=== PATIENT | male | born 1945 | race Caucasian/White ===

== ENCOUNTER 2017-06-07 13:06 | Inpatient (IN) | payer MEDICARE, OTHER ==
--- NOTE | 2017-06-07 13:32 | ED Physician Chart ---
ED Chief Complaint/HPI - Patient Information Date Seen:: 06/07/17 Time Seen:: 13:10 Chief Complaint:: Agitation History of Present Illness:: onset x 3 days of agitation and hostile behavior; no report of trauma, H/as, neck pain, C/P, SOB, Abd. Pain, A/N/V/D/c, fever, chills, or uribnary s/s Allergies:: Allergies Allergy/AdvReac Type Severity Reaction Status Date / Time MDX PCN (penicillin) Allergy Unknown Verified 07/13/12 20:12 [PCN (penicillin)] Historian:: Patient, EMS Review:: Nurse's Note Reviewed, Old Chart Reviewed, EMS run form Reviewed ED Review of Systems - Review of Systems General/Constitutional: No fever, No chills, No weight loss, No weakness, No diaphoresis, No edema, No loss of appetite Skin: No skin lesions, No rash, No bruising Head: No headache, No light-headedness Eyes: No loss of vision, No pain, No diplopia ENT: No earache, No nasal drainage, No sore throat, No tinnitus Neck: No neck pain, No swelling, No thyromegaly, No stiffness, No mass noted Cardio Vascular: No chest pain, No palpitations, No PND, No orthopnea, No edema Pulmonary: No SOB, No cough, No sputum, No wheezing GI: No nausea, No vomiting, No diarrhea, No pain, No melena, No hematochezia, No constipation, No hematemesis G/U: No dysuria, No frequency, No hematuria, No nacturia Musculoskeletal: No bone or joint pain, No back pain, No muscle pain Endocrine: No polyuria, No polydipsia Psychiatric: Prior psych history, No depression, Anxiety, No suicidal ideation, No homicidal ideation, No auditory hallucination, No visual hallucination Hematopoietic: No bruising, No lymphadenopathy Allergic/Immuno: No urticaria, No angioedema Neurological: No syncope, No focal symptoms, No weakness, No paresthesia, No headache, No seizure, No dizziness, Confusion, No vertigo ED Past Medical History - Past Medical History Obtainable: Yes Past Medical History: HTN, Dyslipidemia, Dementia Family History: HTN Social History: Non Smoker, No Alcohol, No Drug Use, Care Facility Surgical History: None Psychiatricy History: Bipolar, Dementia Medication: Reviewed Family Medical History - Family Member Mother History Unknown: Yes ED Physical Exam - Physical Examination General/Constitutional: Awake, Well-developed, well-nourished, Alert, No distress, GCS 15, Non-toxic appearing, Ambulatory Head: Atraumatic Eyes: Lids, conjuctiva normal, PERRL, EOMI Skin: Nl inspection, No rash, No skin lesions, No ecchymosis, Well hydrated, No lymphadenopathy ENMT: External ears, nose nl, TM canals nl, Nasal exam nl, Lips, teeth, gums nl , Oropharynx nl, Tonsils nl Neck: Nontender, Full ROM w/o pain, No JVD, No nuchal rigidity, No bruit, No mass, No stridor Respiratory: Nl effort/Exclusion, Clear to Auscultation, No Wheeze/Rhonchi/Rales Cardio Vascular: RRR, No murmur, gallop, rubs, NL S1 S2, Carotid/Femoral/Distal pulses equal bilaterally GI: No tenderness/rebounding/guarding, No organomegaly, No hernia, Normal BS's, Nondistended, No mass/bruits, No McBurney tenderness : No CVA tenderness Extremities: No tenderness or effusion, Full ROM, normal strength in all extremities, No edema, Normal digits & nails Neuro/Psych: Alert/oriented, DTR's symmetric, Normal sensory exam, Normal motor strength, Judgement/insight normal, Mood normal, Normal gait, No focal deficits Other Neuro/Psych comments:: + psychomotor agitation; no SIs; Mood/Affect: Stable Misc: Normal back, No paraspinal tenderness ED Labs/Radiology/EKG Results - Lab Results Comments:: unremarkable - EKG Interpretations EKG Time:: 13:40 Rate & Rhythm: 80; NSR Comments:: non-specific st-t changes ED Septic Shock - . Is Septic Shock (SBP<90, OR Lactate>4 mmol\L) present?: No ED Reassessment (Disposition) - Reassessment Reassessment Condition:: Improved - Diagnosis Diagnosis:: Dx: Bipolar Disorder; Agitation; Psychosis; Medical Clearance - Aftercare/Follow up Instructions Aftercare/Follow-Up Instructions:: Counseled pt regarding lab results/diagnosis & need follow up, Counseled pt & family regarding lab results/diagnosis & need follow up - Patient Disposition Discharge/Transfer:: Acute Care w/in this hosp Admitted to:: [facility] Condition at Disposition:: Stable, Improved ED Discharge Plan - Patient Disposition
[2017-06-07 14:20] LABS: % BASOPHILS 0.6 % (0.0-2.0); % EOSINOPHILS 0.9 % (0.0-5.0); % LYMPHOCYTES 30.8 % (20.0-50.0); % MONOCYTES 7.7 % (2.0-10.0); EOSINOPHILE ABSOLUTE 0.1 Th/cmm (0.1-0.4); HEMATOCRIT 40.9 % (41.0-60); HEMOGLOBIN 13.7 gm/dL (12-16); MEAN CELL VOLUME 93.2 fl (80-99); MEAN CORPUSCULAR HEMOGLOBIN 31.2 pg (27.0-31.0); MEAN CORPUSCULAR HGB CONC 33.5 pg (28.0-36.0); MEAN PLATELET VOLUME 6.9 fl; MONOCYTE ABSOLUTE 0.5 Th/cmm (0.3-1.0); NEUTROPHILE ABSOLUTE 3.8 Th/cmm (1.8-8.0); PLATELET COUNT 286 Th/cmm (150-400); RED BLOOD COUNT 4.39 Mil/cmm (3.80-5.80); RED CELL DISTRIBUTION WIDTH 12.7 % (11.5-20.0); WHITE BLOOD COUNT 6.4 Th/cmm (4.8-10.8)
[2017-06-07 14:41] LABS: ALB/GLOB RATIO 1.4 (1.0-1.8); ALBUMIN 3.4 gm/dL (4.2-5.5); ALKALINE PHOSPHATASE 96 U/L (34-104); ANION GAP 9.5 (7.0-16.0); BILIRUBIN,TOTAL 0.3 mg/dL (0.3-1.0); BUN - UREA NITROGEN 17 mg/dL (7-25); CALCIUM SERUM 9.1 mg/dL (8.6-10.3); CARBON DIOXIDE 27.3 mEq/L (21.0-31.0); CHLORIDE 104 mEq/L (98-107); CHOLESTEROL 170 mg/dL (<200); CREATININE - SERUM 0.8 mg/dL (0.7-1.3); GLUCOSE 96 mg/dL (70-105); HDL -HIGH DENSITY LIPOPROTEIN 45 mg/dL (23-92); POTASSIUM SERUM 3.8 mEq/L (3.5-5.1); SGOT 10 U/L (13-39); SGPT/ALT 10 U/L (7-52); SODIUM SERUM 137 mEq/L (136-145); TOTAL PROTEIN,SERUM 5.9 gm/dL (6.0-8.3); TRIGLYCERIDES 127 mg/dL (<150)
[2017-06-07 15:00] LABS: ACETAMINOPHEN < 10.0 ug/mL (10.0-30.0); SALICYLATES (ASPIRIN) < 25.0 mg/L (30.0-100.0)
[2017-06-07] MEDS ORDERED: Magnesium Hydroxide (MOM) 30 mL UDC PO PRN (15:21)
[2017-06-07] MEDS ORDERED: Maalox 30 mL Cup PO PRN (15:21)
[2017-06-07 15:34] VITALS: BP 109/61
[2017-06-07] MEDS ORDERED: Non-Formulary Item 1 EA (Haloperidol Decanoate [Haldol Decanoate 50] 1 ML) IM SCH (19:00)
[2017-06-07 19:23] LABS: A1C % 6.5 % (4.0-6.0)
--- NOTE | 2017-06-08 04:17 | Psychosocial Evaluation ---
DATE OF SERVICE: 06/07/2017 IDENTIFYING DATA: The patient is a 72-year-old male, resident of [facility]. Information was obtained by directly interviewing the patient as well as reviewing the admission papers. JUSTIFICATION OF HOSPITALIZATION: The patient is admitted for his acute agitation and mood swings. CHIEF COMPLAINT: "Leave me alone." HISTORY OF PRESENT ILLNESS: This is the first psychiatric hospitalization to [facility] for this patient who is reported to have been diagnosed to have acute mood swings. Prior to the hospitalization, the patient is reported to have been on the Haldol Decanoate at the facility, but the patient has reported that he is not very clear when the last the patient happened to take this medication. The patient has been screaming and yelling at the time of the evaluation and the patient has been getting easily upset. Sleep and appetite prior to the hospitalization are reported to be poor. PAST PSYCHIATRIC HISTORY: Please refer to the above. MEDICAL HISTORY: Requested to be done by Dr. Rafi Barkley. PHYSICAL EXAMINATION: Requested to be done by Dr. Rafi Barkley. SUBSTANCE ABUSE HISTORY: None. PHYSICAL OR SEXUAL ABUSE HISTORY: None. LEGAL PROBLEMS: None at this time. STRENGTH AND ASSETS: The patient is motivated. MENTAL STATUS EXAMINATION: The patient is a 72-year-old, looking his stated age, thin built, superficially cooperative. Eye contact is poor. Mood is irritable. Affect is constricted. Coping skills at this time are noted to be very poor. Sleep and appetite also noted to be very poor. The patient has been having difficult time to cope with the stress. DIAGNOSTIC IMPRESSION: AXIS I: Bipolar disorder, mixed with psychotic symptoms. 1B. Dementia and behavioral change, secondary to it. AXIS II: None. AXIS III: As per Dr. Mckee. IMMEDIATE TREATMENT PLAN: The patient is going to be started on low dose of the Seroquel and he is going to be encouraged to participate in the groups and verbalize the concerns. Once stabilized, the patient is going to be discharged to [facility]. JOB# [id number]
[2017-06-08] MEDS: Multivitamin Tab PO SCH (09:35)
--- NOTE | 2017-06-08 17:18 | Progress Notes ---
DATE: 06/08/2017 SUBJECTIVE: Staff was spoken to. The patient is interviewed. Mood is noted to be irritable. Affect is constricted. The patient is screaming and yelling. Insight and judgment at this time are noted to be very much impaired. Impulse control is noted to be very poor. The patient's sleep is also noted to be very poor. The patient has been not able to communicate well. The patient has difficult time to cope with the stress. ASSESSMENT: The patient is still impulsive and psychotic. PLAN: To increase the dose on the Seroquel to 25 mg and follow the patient with the supportive therapy. The patient is not ready to be discharged to a lower level of care in view of the psychosis. JOB# [id number]
[2017-06-09] MEDS: Multivitamin Tab PO SCH (09:33)
--- NOTE | 2017-06-10 03:04 | Progress Notes ---
DATE: 06/09/2017 SUBJECTIVE: Staff was spoken to. The patient is interviewed. Mood is noted to be irritable. Affect is constricted. Insight and judgment at this time are noted to be impaired. Impulse control seems to be poor. The patient is screaming and yelling. No side effects to the medications are noted. The patient has been having difficult time. PLAN: The patient is currently on Seroquel 25 mg at bedtime and has been able to tolerate. No side effects to the medications are noted at this time. JOB# [id number]
[2017-06-10] MEDS: Multivitamin Tab PO SCH (09:28)
--- NOTE | 2017-06-10 16:30 | History & Physical ---
ADMIT DATE: 06/07/2017 CHIEF COMPLAINT: Agitation. HISTORY OF PRESENT ILLNESS: This is a 72-year-old male who was admitted from correction facility going to the Emergency Room due to agitation, hence once the patient was medically cleared, the patient was admitted to [facility] mental health unit. REVIEW OF SYSTEMS: GENERAL: This is a 72-year-old who appears as stated. Denies fever. Denies weight loss. Denies chills. EYES: Denies eye pain. Denies blurring of vision. NECK: Denies neck pain. Denies nuchal rigidity. CHEST: Denies palpitation. Denies chest pain. PULMONARY: Denies coughing. Denies shortness of breath. GASTROINTESTINAL: Denies abdominal pain. Denies constipation. Denies diarrhea. MUSCULOSKELETAL: Denies joint pain. Denies muscle pain. SOCIAL HISTORY: The patient lives in a correction facility prior to hospitalization. PSYCHIATRIC HISTORY: Includes bipolar disorder. PAST SURGICAL HISTORY: Unremarkable. FAMILY HISTORY: Unremarkable. PAST MEDICAL HISTORY: Includes COPD, hypertension, hyperlipidemia, osteoarthritis, and gastroesophageal reflux disease. PHYSICAL EXAMINATION: VITAL SIGNS: Temperature 98.2, heart rate of 61, blood pressure 111/70, respirations of 18, and 95% on room air. HEENT: Head is atraumatic and normocephalic. Eyes: Bilateral conjunctivae are clear. Bilateral pupils are equally round, reactive. NECK: Supple. No JVD. CARDIOVASCULAR: S1 and S2, without murmur. PULMONARY: Clear to auscultation. GASTROINTESTINAL: Soft and nontender without guarding. Positive bowel sounds. MUSCULOSKELETAL: No clubbing. No cyanosis noted. ASSESSMENT: 1. Bipolar disorder. 2. Chronic obstructive pulmonary disease. 3. Hyperlipidemia. 4. Osteoarthritis. 5. Hypertension. 6. Gastroesophageal reflux disease. PLAN: We will admit the patient to [facility] mental health unit. We will follow up with the psychiatrist to monitor the patient's condition and behavior. We will do medication reconciliation accordingly. Treatment plans were discussed with the patient's nurse. Treatment plans were discussed with Dr. Mckee. JOB# [id number]
--- NOTE | 2017-06-10 18:02 | Progress Notes ---
DATE: 06/10/2017 SUBJECTIVE: Staff was spoken to. The patient is interviewed. Mood is noted to be irritable. Affect is constricted. Insight and judgment at this time are noted still impaired. Impulse control is very poor. Coping skills are noted to be very poor. The patient has been isolative and withdrawn. The patient is currently on 25 mg of the Seroquel and has been able to tolerate the medications. No side effects to medications are noted at this time. The patient's sleep is noted to be poor. Appetite is noted to be improving. No side effects to the Seroquel are noted. The patient's Haldol Decanoate is going to be discontinued at this time. [facility]# [id number]
--- NOTE | 2017-06-11 08:02 | Consultation ---
DATE OF CONSULTATION: 06/09/2017 REFERRING PHYSICIAN: Kenzie Dickey M.D. TYPE OF CONSULTATION: Psychology. HISTORY OF PRESENT ILLNESS: The patient is a 72-year-old male who is a resident of [facility]. The patient is being admitted due to acute agitation and extreme mood fluctuation. The following is by review of the medical record as well as by the patient's self report. The patient is stating to leave him alone. The patient is reported by the staff at his facility to be screaming and yelling and easily agitated. The patient did not answer questions in the clinical interview with respect to safety i.e., suicidal ideation, plan or intention. The patient is getting easily agitated during the clinical interview. The patient is guarded and resistant to this commercial lines underwriter. This commercial lines underwriter will continue to follow up with an extended evaluation. PAST MEDICAL HISTORY: Please see history and physical by Dr. Barkley. PAST PSYCHIATRIC HISTORY: The patient has history of dementia according to the medical record. The patient is under the care of a psychiatrist at his senior care facility. This is the first hospitalization here on the Geropsychiatric unit at [facility]. The patient has a history of Bipolar Disorder according to the record. PSYCHOSOCIAL HISTORY: The patient did not answer questions about occupational or educational history or scientology affiliation. The patient did not answer questions about family history or about his support system or legal issues. The patient did not answer questions about abuse history. SUBSTANCE ABUSE HISTORY: The patient denied any history. MENTAL STATUS EXAMINATION: The patient appears to be of stated age. The patient's attitude is mostly uncooperative. Speech is pressured and loud. The patient is easily agitated and yelling at times. Eye contact is avoidant. Mood is irritable and angry. Affect is constricted. The patient did not answer questions about auditory or visual hallucinations or delusions. Thought process shows to be confused. The patient's behavior is redirectable. Impulse control was poor. Concentration is poor. The patient did not participate in the memory assessment. Sensorium is alert and oriented to place and self only. The patient did not participate in the interpretation of proverbs. Insight is poor. Judgment is impaired. DIAGNOSTIC IMPRESSION: AXIS I: 1. History of Bipolar disorder mixed with psychotic symptoms. 2. Dementia with behavioral disturbance. AXIS II: Deferred. AXIS III: Please see history by Dr. Mckee. PLAN: The patient has been seen by Dr. Dickey for psychiatric evaluation and for the management of the patient's psychotropic medications. According to the admitting physician, the patient is continued on Seroquel. We will provide coping strategies for phase of life issues. We will provide a de-escalation skill for the patient to verbalize concerns versus yelling and acting out. We will provide reality orientation and reality integration. We will provide motivational enhancement for the patient to be calm, compliant, and stay compliant with all aspects of his care and treatment plan during the course of his hospital stay. We will also provide coping skills for chronic severe mental illness. Thank you, Dr. Dickey for this consult and the opportunity to participate with you in this patient's care. JOB# [id number] SACHIN
--- NOTE | 2017-06-11 08:44 | General Progress Note ---
Subjective - Review of Systems Events since last encounter: patient irritable disorganized denies pain Objective - Results Result Diagrams: 06/07/17 14:07 06/07/17 14:07 Recent Labs: Laboratory Last Values WBC 6.4 Th/cmm (4.8-10.8) 06/07/17 14:07 RBC 4.39 Mil/cmm (3.80-5.80) 06/07/17 14:07 Hgb 13.7 gm/dL (12-16) 06/07/17 14:07 Hct 40.9 % (41.0-60) L 06/07/17 14:07 MCV 93.2 fl (80-99) 06/07/17 14:07 MCH 31.2 pg (27.0-31.0) H 06/07/17 14:07 MCHC Differential 33.5 pg (28.0-36.0) 06/07/17 14:07 RDW 12.7 % (11.5-20.0) 06/07/17 14:07 Plt Count 286 Th/cmm (150-400) 06/07/17 14:07 MPV 6.9 fl 06/07/17 14:07 Neutrophils % 60.0 % (40.0-80.0) 06/07/17 14:07 Lymphocytes % 30.8 % (20.0-50.0) 06/07/17 14:07 Monocytes % 7.7 % (2.0-10.0) 06/07/17 14:07 Eosinophils % 0.9 % (0.0-5.0) 06/07/17 14:07 Basophils % 0.6 % (0.0-2.0) 06/07/17 14:07 Sodium 137 mEq/L (136-145) 06/07/17 14:07 Potassium 3.8 mEq/L (3.5-5.1) 06/07/17 14:07 Chloride 104 mEq/L (98-107) 06/07/17 14:07 Carbon Dioxide 27.3 mEq/L (21.0-31.0) 06/07/17 14:07 Anion Gap 9.5 (7.0-16.0) 06/07/17 14:07 BUN 17 mg/dL (7-25) 06/07/17 14:07 Creatinine 0.8 mg/dL (0.7-1.3) 06/07/17 14:07 Est GFR ( Amer) TNP 06/07/17 14:07 Est GFR (Non-Af Amer) TNP 06/07/17 14:07 BUN/Creatinine Ratio 21.3 06/07/17 14:07 Glucose 96 mg/dL (70-105) 06/07/17 14:07 Hemoglobin A1c % 6.5 % (4.0-6.0) H 06/07/17 14:07 Calcium 9.1 mg/dL (8.6-10.3) 06/07/17 14:07 Total Bilirubin 0.3 mg/dL (0.3-1.0) 06/07/17 14:07 AST 10 U/L (13-39) L 06/07/17 14:07 ALT 10 U/L (7-52) 06/07/17 14:07 Alkaline Phosphatase 96 U/L (34-104) 06/07/17 14:07 Total Protein 5.9 gm/dL (6.0-8.3) L 06/07/17 14:07 Albumin 3.4 gm/dL (4.2-5.5) L 06/07/17 14:07 Globulin 2.5 gm/dL 06/07/17 14:07 Albumin/Globulin Ratio 1.4 (1.0-1.8) 06/07/17 14:07 Triglycerides 127 mg/dL (<150) 06/07/17 14:07 Cholesterol 170 mg/dL (<200) 06/07/17 14:07 LDL Cholesterol Direct 112 mg/dL (75-193) 06/07/17 14:07 HDL Cholesterol 45 mg/dL (23-92) 06/07/17 14:07 TSH 1.10 uIU/ml (0.34-5.60) 06/07/17 14:07 Salicylates < 25.0 mg/L (30.0-100.0) L 06/07/17 14:07 Acetaminophen < 10.0 ug/mL (10.0-30.0) L 06/07/17 14:07 Ethyl Alcohol < 10 mg/dL (0-10) 06/07/17 14:07 RPR NONREACTIVE (NONREACTIVE) 06/07/17 14:07 - Physical Exam Vitals and I&O: Vital Signs Temp 98.2 F 06/11/17 04:55 Pulse 84 06/11/17 04:55 Resp 18 06/11/17 04:55 BP 109/68 06/11/17 04:55 Pulse Ox 93 06/11/17 04:55 Intake & Output 06/10/17 06/11/17 06/11/17 18:59 06:59 18:59 Intake Total 480 Balance 480 Intake: Oral 480 Other: # Voids 2 Stool Characteristics Soft Formed Active Medications: Current Medications Acetaminophen (Tylenol) 650 mg PO Q4HR PRN PRN Reason: Mild Pain / Temp above 100 Stop: 08/06/17 15:20 Al Hydrox/Mg Hydrox/Simethicone (Maalox) 30 ml PO Q4HR PRN PRN Reason: GI DISTRESS Stop: 08/06/17 15:20 Lorazepam (Ativan) 0.5 mg PO Q4HR PRN; Protocol PRN Reason: Anxiety Stop: 07/07/17 15:20 Last Admin: 06/08/17 09:35 Dose: 0.5 mg Magnesium Hydroxide (Milk Of Magnesia) 30 ml PO HS PRN PRN Reason: Constipation Multivitamins/Vitamin C (Theragran) 1 tab PO DAILY MEENAKSHI Stop: 08/07/17 08:59 Last Admin: 06/10/17 09:28 Dose: 1 tab Quetiapine Fumarate (Seroquel) 25 mg PO HS MEENAKSHI PRN Reason: Protocol Stop: 08/07/17 11:01 Last Admin: 06/10/17 21:21 Dose: 25 mg Zolpidem Tartrate (Ambien) 5 mg PO HS PRN PRN Reason: Insomnia Stop: 08/06/17 15:20 Last Admin: 06/11/17 00:14 Dose: 5 mg - Procedures Procedures: Procedures Procedure Code Date OTHER GROUP THERAPY 94.44 07/14/12 Assessment/Plan - Problem List Patient Problems: All Active Problems AGITATION WITH VERBAL ABUSE, DISRUPTIVE (Acute) Nutritional Asmnt/Malnutr-PDOC - Dietary Evaluation Malnutrition Findings (Please click <Entered> for more info): Nutritional Asmnt/Malnutrition Start: 06/10/17 11: 36 Text: Status: Complete Freq: Document 06/10/17 11:36 MMULHERN (Rec: 06/10/17 11:49 [email or web address] ROSEMARY- [email or web address]) Nutritional Asmnt/Malnutrition Patient General Information Nutritional Screening Moderate Risk Diagnosis Bipolar, agitation, psychosis Pertinent Medical Hx/Surgical Hx COPD, Hyperlipidemia, Osteoarthritis, GERD, HTN, Postural Kyphosis Subjective Information Per nursing notes, patient is selectively mute. Tolerating current diet order without difficulty. Current Diet Order/ Nutrition Support Regular Pertinent Medications maalox, MOM, theragran Pertinent Labs (06/07) albumin 3.4 Nutritional Hx/Data Height 1.73 m Height (Calculated Centimeters) 172.7 Current Weight (lbs) 57.153 kg Weight (Calculated Kilograms) 57.2 Weight (Calculated Grams) 19138.6 [place] Body Weight 154 % [place] Body Weight 81 Body Mass Index (BMI) 19.1 Recent Weight Change No Weight Status Approriate GI Symptoms GI Symptoms None Last BM Prior to admission Difficult in: None Food Allergies No Cultural/Ethnic/Scientology Belief None indicated Skin Integrity/Comment: [place] 14, erythema, reddened Current %PO Good (75-100%) Estimated Nutritional Goals BEE in Kcals: Using Current wt Calories/Kcals/Kg 57.2kg 30-35 kcal/kg Kcals Calculated ~0916-5238 kcal/day Protein: Using Current wt Protein g/k-1.2 gm/kg Protein Calculated ~60-70 gm/day Fluid: ml ~3047-9725 ml/day (1 ml/kcal) Nutritional Problem 1. Problem Problem No nutrition diagnosis at this time Intervention/Recommendation Comments 1. Continue regular diet as tolerated by patient. Expected Outcomes/Goals Expected Outcomes/Goals oral intake to meet >75% of nutrient needs, weight stable or trends toward ideal body weight, nutrition related labs WNL F/U LR 06/17
[2017-06-11] MEDS: Multivitamin Tab PO SCH (09:59)
--- NOTE | 2017-06-12 01:06 | Progress Notes ---
DATE: 06/11/2017 SUBJECTIVE: Staff was spoken to. The patient is interviewed. Mood is noted to be depressed. Affect is constricted. Insight and judgment at this time are noted to be still impaired. Impulse control seems to be limited. Coping skills are also noted to be limited. The patient has been having difficult time to cope with the stress. The patient is isolative and withdrawn. The patient, however, is reported to have been taking his clothes off last night and has been getting into other people's rooms. The patient needs to be redirected and being closely monitored at this time. ASSESSMENT: The patient is still paranoid. PLAN: To continue the patient with the supportive therapy and encouraged the patient to verbalize the concerns rather than to act out. JOB# [id number]
[2017-06-12] MEDS: Multivitamin Tab PO SCH (08:39)
[2017-06-12] MEDS ORDERED: Haloperidol Lactate 5 mg/mL 1mL Vial IM ONE (13:10)
[2017-06-12] MEDS ORDERED: Haloperidol Lactate 5 mg/mL 1mL Vial ONE (13:13)
--- NOTE | 2017-06-12 14:20 | General Progress Note ---
Subjective - Review of Systems Events since last encounter: patient paranoid anxious denies pain Objective - Results Result Diagrams: 06/07/17 14:07 06/07/17 14:07 Recent Labs: Laboratory Last Values WBC 6.4 Th/cmm (4.8-10.8) 06/07/17 14:07 RBC 4.39 Mil/cmm (3.80-5.80) 06/07/17 14:07 Hgb 13.7 gm/dL (12-16) 06/07/17 14:07 Hct 40.9 % (41.0-60) L 06/07/17 14:07 MCV 93.2 fl (80-99) 06/07/17 14:07 MCH 31.2 pg (27.0-31.0) H 06/07/17 14:07 MCHC Differential 33.5 pg (28.0-36.0) 06/07/17 14:07 RDW 12.7 % (11.5-20.0) 06/07/17 14:07 Plt Count 286 Th/cmm (150-400) 06/07/17 14:07 MPV 6.9 fl 06/07/17 14:07 Neutrophils % 60.0 % (40.0-80.0) 06/07/17 14:07 Lymphocytes % 30.8 % (20.0-50.0) 06/07/17 14:07 Monocytes % 7.7 % (2.0-10.0) 06/07/17 14:07 Eosinophils % 0.9 % (0.0-5.0) 06/07/17 14:07 Basophils % 0.6 % (0.0-2.0) 06/07/17 14:07 Sodium 137 mEq/L (136-145) 06/07/17 14:07 Potassium 3.8 mEq/L (3.5-5.1) 06/07/17 14:07 Chloride 104 mEq/L (98-107) 06/07/17 14:07 Carbon Dioxide 27.3 mEq/L (21.0-31.0) 06/07/17 14:07 Anion Gap 9.5 (7.0-16.0) 06/07/17 14:07 BUN 17 mg/dL (7-25) 06/07/17 14:07 Creatinine 0.8 mg/dL (0.7-1.3) 06/07/17 14:07 Est GFR ( Amer) TNP 06/07/17 14:07 Est GFR (Non-Af Amer) TNP 06/07/17 14:07 BUN/Creatinine Ratio 21.3 06/07/17 14:07 Glucose 96 mg/dL (70-105) 06/07/17 14:07 Hemoglobin A1c % 6.5 % (4.0-6.0) H 06/07/17 14:07 Calcium 9.1 mg/dL (8.6-10.3) 06/07/17 14:07 Total Bilirubin 0.3 mg/dL (0.3-1.0) 06/07/17 14:07 AST 10 U/L (13-39) L 06/07/17 14:07 ALT 10 U/L (7-52) 06/07/17 14:07 Alkaline Phosphatase 96 U/L (34-104) 06/07/17 14:07 Total Protein 5.9 gm/dL (6.0-8.3) L 06/07/17 14:07 Albumin 3.4 gm/dL (4.2-5.5) L 06/07/17 14:07 Globulin 2.5 gm/dL 06/07/17 14:07 Albumin/Globulin Ratio 1.4 (1.0-1.8) 06/07/17 14:07 Triglycerides 127 mg/dL (<150) 06/07/17 14:07 Cholesterol 170 mg/dL (<200) 06/07/17 14:07 LDL Cholesterol Direct 112 mg/dL (75-193) 06/07/17 14:07 HDL Cholesterol 45 mg/dL (23-92) 06/07/17 14:07 TSH 1.10 uIU/ml (0.34-5.60) 06/07/17 14:07 Salicylates < 25.0 mg/L (30.0-100.0) L 06/07/17 14:07 Acetaminophen < 10.0 ug/mL (10.0-30.0) L 06/07/17 14:07 Ethyl Alcohol < 10 mg/dL (0-10) 06/07/17 14:07 RPR NONREACTIVE (NONREACTIVE) 06/07/17 14:07 - Physical Exam Vitals and I&O: Vital Signs Temp 96.5 F 06/12/17 06:42 Pulse 68 06/12/17 06:42 Resp 17 06/12/17 06:42 BP 127/73 06/12/17 06:42 Pulse Ox 95 06/12/17 06:42 Active Medications: Current Medications Acetaminophen (Tylenol) 650 mg PO Q4HR PRN PRN Reason: Mild Pain / Temp above 100 Stop: 08/06/17 15:20 Al Hydrox/Mg Hydrox/Simethicone (Maalox) 30 ml PO Q4HR PRN PRN Reason: GI DISTRESS Stop: 08/06/17 15:20 Lorazepam (Ativan) 0.5 mg PO Q4HR PRN; Protocol PRN Reason: Anxiety Stop: 07/07/17 15:20 Last Admin: 06/12/17 08:50 Dose: 0.5 mg Magnesium Hydroxide (Milk Of Magnesia) 30 ml PO HS PRN PRN Reason: Constipation Multivitamins/Vitamin C (Theragran) 1 tab PO DAILY MEENAKSHI Stop: 08/07/17 08:59 Last Admin: 06/12/17 08:39 Dose: 1 tab Quetiapine Fumarate (Seroquel) 25 mg PO BID MEENAKSHI PRN Reason: Protocol Stop: 08/11/17 08:59 Last Admin: 06/12/17 10:45 Dose: 25 mg Zolpidem Tartrate (Ambien) 5 mg PO HS PRN PRN Reason: Insomnia Stop: 08/06/17 15:20 Last Admin: 06/11/17 23:34 Dose: 5 mg - Procedures Procedures: Procedures Procedure Code Date OTHER GROUP THERAPY 94.44 07/14/12 Assessment/Plan - Problem List Patient Problems: All Active Problems AGITATION WITH VERBAL ABUSE, DISRUPTIVE (Acute) Nutritional Asmnt/Malnutr-PDOC - Dietary Evaluation Malnutrition Findings (Please click <Entered> for more info): Nutritional Asmnt/Malnutrition Start: 06/10/17 11: 36 Text: Status: Complete Freq: Document 06/10/17 11:36 MMULHERN (Rec: 06/10/17 11:49 MMULHERN ROSEMARY- [email or web address]) Nutritional Asmnt/Malnutrition Patient General Information Nutritional Screening Moderate Risk Diagnosis Bipolar, agitation, psychosis Pertinent Medical Hx/Surgical Hx COPD, Hyperlipidemia, Osteoarthritis, GERD, HTN, Postural Kyphosis Subjective Information Per nursing notes, patient is selectively mute. Tolerating current diet order without difficulty. Current Diet Order/ Nutrition Support Regular Pertinent Medications maalox, MOM, theragran Pertinent Labs (06/07) albumin 3.4 Nutritional Hx/Data Height 1.73 m Height (Calculated Centimeters) 172.7 Current Weight (lbs) 57.153 kg Weight (Calculated Kilograms) 57.2 Weight (Calculated Grams) 77624.6 [place] Body Weight 154 % [place] Body Weight 81 Body Mass Index (BMI) 19.1 Recent Weight Change No Weight Status Approriate GI Symptoms GI Symptoms None Last BM Prior to admission Difficult in: None Food Allergies No Cultural/Ethnic/Rastafarian Belief None indicated Skin Integrity/Comment: Nirmal 14, erythema, reddened Current %PO Good (75-100%) Estimated Nutritional Goals BEE in Kcals: Using Current wt Calories/Kcals/Kg 57.2kg 30-35 kcal/kg Kcals Calculated ~3376-4649 kcal/day Protein: Using Current wt Protein g/k-1.2 gm/kg Protein Calculated ~60-70 gm/day Fluid: ml ~2988-4127 ml/day (1 ml/kcal) Nutritional Problem 1. Problem Problem No nutrition diagnosis at this time Intervention/Recommendation Comments 1. Continue regular diet as tolerated by patient. Expected Outcomes/Goals Expected Outcomes/Goals oral intake to meet >75% of nutrient needs, weight stable or trends toward ideal body weight, nutrition related labs WNL F/U LR 06/17
[2017-06-13] MEDS: Multivitamin Tab PO SCH (09:49)
--- NOTE | 2017-06-13 15:02 | Progress Notes ---
DATE: 06/12/2017 SUBJECTIVE: Staff was spoken to. The patient is interviewed. Mood is noted to be irritable. Affect is constricted. The patient is easily agitated and hence has been trying to get up and walk out to the exit doors. The patient has no insight into his illness. Coping skills are noted to be very poor at this time. No side effects to the medication are noted. The patient is getting easily irritable and angry when he has been tried to be redirected. The patient is not ready to be discharged to a lower level of care. PLAN: To increase the dose on the Seroquel to 25 mg twice a day and followup. JOB# [id number]
--- NOTE | 2017-06-14 05:26 | Progress Notes ---
DATE: 06/13/2017 SUBJECTIVE: Staff was spoken to. The patient is interviewed. Mood is noted to be irritable. Affect is constricted. Coping skills are noted to be poor. Insight and judgment are noted to be still impaired. Impulse control seems to be limited. The patient has been wandering and needs to be redirected constantly. No side effects to the medications are noted. The patient is very confused and demented. ASSESSMENT: The patient is still grossly psychotic. PLAN: To continue the patient with the supportive therapy and followup. JOB# [id number]
--- NOTE | 2017-06-14 08:59 | General Progress Note ---
Subjective - Review of Systems Events since last encounter: patient awake disorganized no distress Objective - Results Result Diagrams: 06/07/17 14:07 06/07/17 14:07 Recent Labs: Laboratory Last Values WBC 6.4 Th/cmm (4.8-10.8) 06/07/17 14:07 RBC 4.39 Mil/cmm (3.80-5.80) 06/07/17 14:07 Hgb 13.7 gm/dL (12-16) 06/07/17 14:07 Hct 40.9 % (41.0-60) L 06/07/17 14:07 MCV 93.2 fl (80-99) 06/07/17 14:07 MCH 31.2 pg (27.0-31.0) H 06/07/17 14:07 MCHC Differential 33.5 pg (28.0-36.0) 06/07/17 14:07 RDW 12.7 % (11.5-20.0) 06/07/17 14:07 Plt Count 286 Th/cmm (150-400) 06/07/17 14:07 MPV 6.9 fl 06/07/17 14:07 Neutrophils % 60.0 % (40.0-80.0) 06/07/17 14:07 Lymphocytes % 30.8 % (20.0-50.0) 06/07/17 14:07 Monocytes % 7.7 % (2.0-10.0) 06/07/17 14:07 Eosinophils % 0.9 % (0.0-5.0) 06/07/17 14:07 Basophils % 0.6 % (0.0-2.0) 06/07/17 14:07 Sodium 137 mEq/L (136-145) 06/07/17 14:07 Potassium 3.8 mEq/L (3.5-5.1) 06/07/17 14:07 Chloride 104 mEq/L (98-107) 06/07/17 14:07 Carbon Dioxide 27.3 mEq/L (21.0-31.0) 06/07/17 14:07 Anion Gap 9.5 (7.0-16.0) 06/07/17 14:07 BUN 17 mg/dL (7-25) 06/07/17 14:07 Creatinine 0.8 mg/dL (0.7-1.3) 06/07/17 14:07 Est GFR ( Amer) TNP 06/07/17 14:07 Est GFR (Non-Af Amer) TNP 06/07/17 14:07 BUN/Creatinine Ratio 21.3 06/07/17 14:07 Glucose 96 mg/dL (70-105) 06/07/17 14:07 Hemoglobin A1c % 6.5 % (4.0-6.0) H 06/07/17 14:07 Calcium 9.1 mg/dL (8.6-10.3) 06/07/17 14:07 Total Bilirubin 0.3 mg/dL (0.3-1.0) 06/07/17 14:07 AST 10 U/L (13-39) L 06/07/17 14:07 ALT 10 U/L (7-52) 06/07/17 14:07 Alkaline Phosphatase 96 U/L (34-104) 06/07/17 14:07 Total Protein 5.9 gm/dL (6.0-8.3) L 06/07/17 14:07 Albumin 3.4 gm/dL (4.2-5.5) L 06/07/17 14:07 Globulin 2.5 gm/dL 06/07/17 14:07 Albumin/Globulin Ratio 1.4 (1.0-1.8) 06/07/17 14:07 Triglycerides 127 mg/dL (<150) 06/07/17 14:07 Cholesterol 170 mg/dL (<200) 06/07/17 14:07 LDL Cholesterol Direct 112 mg/dL (75-193) 06/07/17 14:07 HDL Cholesterol 45 mg/dL (23-92) 06/07/17 14:07 TSH 1.10 uIU/ml (0.34-5.60) 06/07/17 14:07 Salicylates < 25.0 mg/L (30.0-100.0) L 06/07/17 14:07 Acetaminophen < 10.0 ug/mL (10.0-30.0) L 06/07/17 14:07 Ethyl Alcohol < 10 mg/dL (0-10) 06/07/17 14:07 RPR NONREACTIVE (NONREACTIVE) 06/07/17 14:07 - Physical Exam Vitals and I&O: Vital Signs Temp 97.5 F 06/14/17 06:17 Pulse 77 06/14/17 06:17 Resp 20 06/14/17 06:17 BP 126/71 06/14/17 06:17 Pulse Ox 94 06/14/17 06:17 Intake & Output 06/13/17 06/14/17 06/14/17 18:59 06:59 18:59 Intake Total 1000 Balance 1000 Intake: Oral 1000 Other: # Voids 4 # Bowel Movements 1 Stool Characteristics Formed Active Medications: Current Medications Acetaminophen (Tylenol) 650 mg PO Q4HR PRN PRN Reason: Mild Pain / Temp above 100 Stop: 08/06/17 15:20 Al Hydrox/Mg Hydrox/Simethicone (Maalox) 30 ml PO Q4HR PRN PRN Reason: GI DISTRESS Stop: 08/06/17 15:20 Lorazepam (Ativan) 0.5 mg PO Q4HR PRN; Protocol PRN Reason: Anxiety Stop: 07/07/17 15:20 Last Admin: 06/14/17 04:57 Dose: 0.5 mg Magnesium Hydroxide (Milk Of Magnesia) 30 ml PO HS PRN PRN Reason: Constipation Multivitamins/Vitamin C (Theragran) 1 tab PO DAILY MEENAKSHI Stop: 08/07/17 08:59 Last Admin: 06/13/17 09:49 Dose: 1 tab Quetiapine Fumarate (Seroquel) 25 mg PO BID MEENAKSHI PRN Reason: Protocol Stop: 08/11/17 08:59 Last Admin: 06/13/17 17:46 Dose: 25 mg Zolpidem Tartrate (Ambien) 5 mg PO HS PRN PRN Reason: Insomnia Stop: 08/06/17 15:20 Last Admin: 06/14/17 00:49 Dose: 5 mg - Procedures Procedures: Procedures Procedure Code Date OTHER GROUP THERAPY 94.44 07/14/12 Assessment/Plan - Problem List Patient Problems: All Active Problems AGITATION WITH VERBAL ABUSE, DISRUPTIVE (Acute) Nutritional Asmnt/Malnutr-PDOC - Dietary Evaluation Malnutrition Findings (Please click <Entered> for more info): Nutritional Asmnt/Malnutrition Start: 06/10/17 11: 36 Text: Status: Complete Freq: Document 06/10/17 11:36 MMULHERN (Rec: 06/10/17 11:49 MMULHERN ROSEMARY- FNS1) Nutritional Asmnt/Malnutrition Patient General Information Nutritional Screening Moderate Risk Diagnosis Bipolar, agitation, psychosis Pertinent Medical Hx/Surgical Hx COPD, Hyperlipidemia, Osteoarthritis, GERD, HTN, Postural Kyphosis Subjective Information Per nursing notes, patient is selectively mute. Tolerating current diet order without difficulty. Current Diet Order/ Nutrition Support Regular Pertinent Medications maalox, MOM, theragran Pertinent Labs (06/07) albumin 3.4 Nutritional Hx/Data Height 1.73 m Height (Calculated Centimeters) 172.7 Current Weight (lbs) 57.153 kg Weight (Calculated Kilograms) 57.2 Weight (Calculated Grams) 51410.6 [place] Body Weight 154 % [place] Body Weight 81 Body Mass Index (BMI) 19.1 Recent Weight Change No Weight Status Approriate GI Symptoms GI Symptoms None Last BM Prior to admission Difficult in: None Food Allergies No Cultural/Ethnic/Scientology Belief None indicated Skin Integrity/Comment: Nirmal 14, erythema, reddened Current %PO Good (75-100%) Estimated Nutritional Goals BEE in Kcals: Using Current wt Calories/Kcals/Kg 57.2kg 30-35 kcal/kg Kcals Calculated ~0183-4505 kcal/day Protein: Using Current wt Protein g/k-1.2 gm/kg Protein Calculated ~60-70 gm/day Fluid: ml ~6141-3301 ml/day (1 ml/kcal) Nutritional Problem 1. Problem Problem No nutrition diagnosis at this time Intervention/Recommendation Comments 1. Continue regular diet as tolerated by patient. Expected Outcomes/Goals Expected Outcomes/Goals oral intake to meet >75% of nutrient needs, weight stable or trends toward ideal body weight, nutrition related labs WNL F/U LR 06/17
[2017-06-14] MEDS: Multivitamin Tab PO SCH (10:00)
--- NOTE | 2017-06-15 03:05 | Progress Notes ---
DATE: 06/14/2017 SUBJECTIVE: Staff was spoken to. The patient is interviewed. Mood is noted to be irritable. Affect is constricted. The patient is very angry and upset and has been trying to AWOL. Coping skills are noted to be very poor. The patient is taking his clothes off and has been wandering off. No side effects to the medications are noted. ASSESSMENT: The patient is still grossly psychotic, confused and demented. PLAN: To continue the Seroquel and closely monitor the patient. I encouraged the patient to verbalize the concerns rather than to act out. JOB# [id number]
--- NOTE | 2017-06-15 08:35 | General Progress Note ---
Subjective - Review of Systems Events since last encounter: patient awake disorganized withdrawn Objective - Results Result Diagrams: 06/07/17 14:07 06/07/17 14:07 Recent Labs: Laboratory Last Values WBC 6.4 Th/cmm (4.8-10.8) 06/07/17 14:07 RBC 4.39 Mil/cmm (3.80-5.80) 06/07/17 14:07 Hgb 13.7 gm/dL (12-16) 06/07/17 14:07 Hct 40.9 % (41.0-60) L 06/07/17 14:07 MCV 93.2 fl (80-99) 06/07/17 14:07 MCH 31.2 pg (27.0-31.0) H 06/07/17 14:07 MCHC Differential 33.5 pg (28.0-36.0) 06/07/17 14:07 RDW 12.7 % (11.5-20.0) 06/07/17 14:07 Plt Count 286 Th/cmm (150-400) 06/07/17 14:07 MPV 6.9 fl 06/07/17 14:07 Neutrophils % 60.0 % (40.0-80.0) 06/07/17 14:07 Lymphocytes % 30.8 % (20.0-50.0) 06/07/17 14:07 Monocytes % 7.7 % (2.0-10.0) 06/07/17 14:07 Eosinophils % 0.9 % (0.0-5.0) 06/07/17 14:07 Basophils % 0.6 % (0.0-2.0) 06/07/17 14:07 Sodium 137 mEq/L (136-145) 06/07/17 14:07 Potassium 3.8 mEq/L (3.5-5.1) 06/07/17 14:07 Chloride 104 mEq/L (98-107) 06/07/17 14:07 Carbon Dioxide 27.3 mEq/L (21.0-31.0) 06/07/17 14:07 Anion Gap 9.5 (7.0-16.0) 06/07/17 14:07 BUN 17 mg/dL (7-25) 06/07/17 14:07 Creatinine 0.8 mg/dL (0.7-1.3) 06/07/17 14:07 Est GFR ( Amer) TNP 06/07/17 14:07 Est GFR (Non-Af Amer) TNP 06/07/17 14:07 BUN/Creatinine Ratio 21.3 06/07/17 14:07 Glucose 96 mg/dL (70-105) 06/07/17 14:07 Hemoglobin A1c % 6.5 % (4.0-6.0) H 06/07/17 14:07 Calcium 9.1 mg/dL (8.6-10.3) 06/07/17 14:07 Total Bilirubin 0.3 mg/dL (0.3-1.0) 06/07/17 14:07 AST 10 U/L (13-39) L 06/07/17 14:07 ALT 10 U/L (7-52) 06/07/17 14:07 Alkaline Phosphatase 96 U/L (34-104) 06/07/17 14:07 Total Protein 5.9 gm/dL (6.0-8.3) L 06/07/17 14:07 Albumin 3.4 gm/dL (4.2-5.5) L 06/07/17 14:07 Globulin 2.5 gm/dL 06/07/17 14:07 Albumin/Globulin Ratio 1.4 (1.0-1.8) 06/07/17 14:07 Triglycerides 127 mg/dL (<150) 06/07/17 14:07 Cholesterol 170 mg/dL (<200) 06/07/17 14:07 LDL Cholesterol Direct 112 mg/dL (75-193) 06/07/17 14:07 HDL Cholesterol 45 mg/dL (23-92) 06/07/17 14:07 TSH 1.10 uIU/ml (0.34-5.60) 06/07/17 14:07 Salicylates < 25.0 mg/L (30.0-100.0) L 06/07/17 14:07 Acetaminophen < 10.0 ug/mL (10.0-30.0) L 06/07/17 14:07 Ethyl Alcohol < 10 mg/dL (0-10) 06/07/17 14:07 RPR NONREACTIVE (NONREACTIVE) 06/07/17 14:07 - Physical Exam Vitals and I&O: Vital Signs Temp 98.1 F 06/14/17 20:00 Pulse 74 06/14/17 20:00 Resp 20 06/14/17 20:00 BP 127/69 06/14/17 20:00 Pulse Ox 98 06/14/17 20:00 Intake & Output 06/14/17 06/15/17 06/15/17 18:59 06:59 18:59 Intake Total 540 Output Total 900 Balance -360 Intake: Other 540 Output: Urine 900 Active Medications: Current Medications Acetaminophen (Tylenol) 650 mg PO Q4HR PRN PRN Reason: Mild Pain / Temp above 100 Stop: 08/06/17 15:20 Al Hydrox/Mg Hydrox/Simethicone (Maalox) 30 ml PO Q4HR PRN PRN Reason: GI DISTRESS Stop: 08/06/17 15:20 Lorazepam (Ativan) 0.5 mg PO Q4HR PRN; Protocol PRN Reason: Anxiety Stop: 07/07/17 15:20 Last Admin: 06/14/17 04:57 Dose: 0.5 mg Magnesium Hydroxide (Milk Of Magnesia) 30 ml PO HS PRN PRN Reason: Constipation Multivitamins/Vitamin C (Theragran) 1 tab PO DAILY MEENAKSHI Stop: 08/07/17 08:59 Last Admin: 06/14/17 10:00 Dose: 1 tab Quetiapine Fumarate (Seroquel) 25 mg PO BID MEENAKSHI PRN Reason: Protocol Stop: 08/11/17 08:59 Last Admin: 06/14/17 17:32 Dose: 25 mg Zolpidem Tartrate (Ambien) 5 mg PO HS PRN PRN Reason: Insomnia Stop: 08/06/17 15:20 Last Admin: 06/14/17 00:49 Dose: 5 mg - Procedures Procedures: Procedures Procedure Code Date OTHER GROUP THERAPY 94.44 07/14/12 Assessment/Plan - Problem List Patient Problems: All Active Problems AGITATION WITH VERBAL ABUSE, DISRUPTIVE (Acute) Nutritional Asmnt/Malnutr-PDOC - Dietary Evaluation Malnutrition Findings (Please click <Entered> for more info): Nutritional Asmnt/Malnutrition Start: 06/10/17 11: 36 Text: Status: Complete Freq: Document 06/10/17 11:36 MMULHERN (Rec: 06/10/17 11:49 MMULHERN ROSEMARY- [email or web address]) Nutritional Asmnt/Malnutrition Patient General Information Nutritional Screening Moderate Risk Diagnosis Bipolar, agitation, psychosis Pertinent Medical Hx/Surgical Hx COPD, Hyperlipidemia, Osteoarthritis, GERD, HTN, Postural Kyphosis Subjective Information Per nursing notes, patient is selectively mute. Tolerating current diet order without difficulty. Current Diet Order/ Nutrition Support Regular Pertinent Medications maalox, MOM, theragran Pertinent Labs (06/07) albumin 3.4 Nutritional Hx/Data Height 1.73 m Height (Calculated Centimeters) 172.7 Current Weight (lbs) 57.153 kg Weight (Calculated Kilograms) 57.2 Weight (Calculated Grams) 63064.6 [place] Body Weight 154 % [place] Body Weight 81 Body Mass Index (BMI) 19.1 Recent Weight Change No Weight Status Approriate GI Symptoms GI Symptoms None Last BM Prior to admission Difficult in: None Food Allergies No Cultural/Ethnic/Lutheran Belief None indicated Skin Integrity/Comment: Nirmal 14, erythema, reddened Current %PO Good (75-100%) Estimated Nutritional Goals BEE in Kcals: Using Current wt Calories/Kcals/Kg 57.2kg 30-35 kcal/kg Kcals Calculated ~9210-8900 kcal/day Protein: Using Current wt Protein g/k-1.2 gm/kg Protein Calculated ~60-70 gm/day Fluid: ml ~9732-6469 ml/day (1 ml/kcal) Nutritional Problem 1. Problem Problem No nutrition diagnosis at this time Intervention/Recommendation Comments 1. Continue regular diet as tolerated by patient. Expected Outcomes/Goals Expected Outcomes/Goals oral intake to meet >75% of nutrient needs, weight stable or trends toward ideal body weight, nutrition related labs WNL F/U LR 06/17
[2017-06-15] MEDS: Multivitamin Tab PO SCH (09:35)
== END 2017-06-15 10:00 | DRG 885 ==
LOC: ER 13:06 → GERO2 14:24 → UNDODISIN 06-14 15:17
DX: F31.64 Bipolar disorder, current episode mixed, severe, with psychotic features (principal); F03.91 Unspecified dementia, unspecified severity, with behavioral disturbance; R45.1 Restlessness and agitation; J44.9 Chronic obstructive pulmonary disease, unspecified; I10 Essential (primary) hypertension; E78.5 Hyperlipidemia, unspecified; M19.90 Unspecified osteoarthritis, unspecified site; F60.0 Paranoid personality disorder; K21.9 Gastro-esophageal reflux disease without esophagitis; Z88.0 Allergy status to penicillin
CPT/HCPCS: 36415-UA; 80053-TC; 80061-TC; 80320-TC; 80329-TC; 83036-90; 84443-TC; 85025-TC; 86592-TC; 93005; G0410; J1630; Z7610